=== PATIENT | male | born 1990 | race Caucasian/White ===

== ENCOUNTER 2023-07-10 11:26 | Emergency (ER) | payer BC, SELFPAY ==
[2023-07-10 11:34] VITALS: BP 147/88; PULSE 79; RESP 20; TEMP 36.8; O2SAT 99
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
== END 2023-07-10 11:46 | disposition home or self-care (01) ==
PROVIDERS: Emergency Provider Nurse Practitioner Family; PCP Nurse Practitioner Family
DX: S61.452A Open bite of left hand, initial encounter (principal); W55.01XA Bitten by cat, initial encounter
CPT/HCPCS: 99203; G0463